=== PATIENT | male | born 1980 | race Caucasian/White ===

== ENCOUNTER 2025-04-14 08:58 | Emergency (ER) | payer BC, SELFPAY ==
[2025-04-14] MEDS ORDERED: Benzonatate 100 MG CAP ONE (09:20)
[2025-04-14] MEDS ORDERED: Losartan 25 MG TAB ONE (09:20)
== END 2025-04-14 09:49 | disposition home or self-care (01) ==
LOC: BURERS 08:58
DX: J20.9 Acute bronchitis, unspecified (principal); I10 Essential (primary) hypertension; F17.210 Nicotine dependence, cigarettes, uncomplicated
CPT/HCPCS: 71046; 99283